=== PATIENT | female | born 1945 ===

== ENCOUNTER 2018-09-30 05:45 | Emergency (ER) | payer MEDICARE, SELFPAY ==
[2018-09-30] VITALS (9 sets, daily range): BP systolic 140–155; BP diastolic 55–63; PULSE 54–60; RESP 16–23; TEMP 36.5; O2SAT 91–96
--- NOTE | 2018-09-30 06:10 | DI.RAD_ITS ---
SYMPTOM/DIAGNOSIS: CHEST PAIN PORTABLE AP CHEST AT 0625 HOURS: The heart is enlarged. The lungs are grossly clear and well expanded. No other significant findings.
--- NOTE | 2018-09-30 06:12 | W.ED.GENAD ---
Discharge Plan Disposition Patient Disposition: [facility] Condition: Stable Discharge Details Chief Complaint: Chest Pain Clinical Impression: ST elevation (STEMI) myocardial infarction Primary Care Provider: Sadaf,Local ED Provider: Eren Kohler and New Rx's Prescriptions: No Action metoprolol succinate 100 mg Tablet Extended Release 24 Hr 100 mg PO DAILY RF: 0 allopurinol 100 mg Tablet 200 mg PO DAILY RF: 0 spironolactone 25 mg Tablet 25 mg PO DAILY RF: 0 furosemide [Lasix] 20 mg Tablet RF: 0 Medical Decision Making 73-year-old female with history of hypertension and chronic kidney disease visiting from [place]. Awoke with indigestion at 3 AM. Had similar symptoms 3 days prior to today but resolved with Zantac. EKG this morning shows anterior lateral STEMI. Patient moved to the resuscitation room where IV is established, laboratory studies obtained, medications administered. Case discussed with [facility] cardiology. Patient ordered for TNK, nitroglycerin, aspirin, Plavix, heparin drip. Case discussed with [facility] cardiology. Patient accepted in transfer to go to [facility]. Dark activated. Shortly after getting the TNK patient reports chest pain resolved. Repeat EKG done shows sinus bradycardia at 56. Continues with left axis but normal intervals. ST segments have almost completely normalized. She still has Q waves and poor R wave progression. She remains hemodynamically stable. Labs mostly pending. CBC is back with normal hemoglobin and platelets. Coags are normal. Portable chest x-ray per my review without acute changes. Lab Data Lab results reviewed: Yes I reviewed the patient's lab results. ECG Data Attestation: I personally reviewed and interpreted this ECG (s) as follows: Prior ECG tracings: not available for review Interpretation: #1 -Sinus bradycardia at 47. Left axis. Normal intervals. ST elevation in the anterior lateral leads with reciprocal change in the inferior leads. Q waves in V1 through V3 with poor R wave progression across the precordium. HPI General Mode of arrival: wheelchair. Date/Time Provider Initiated Documentation: 09/30/18 05:58. Limitations to Documentation: no limitations. Information obtained by: patient. HPI Narrative: Patient presents to ED with complaints of indigestion. Patient woke at 3 AM with discomfort in the center of her chest. It radiates into her jaw and her left arm. She has a little bit of shortness of breath especially with exertion. She reports having similar pain and discomfort 3 days ago while in [place]. It resolved after taking Zantac so they decided to come here for this grandson's graduation. She has not had any recurrent pain until this morning. She has not had pain previously. She does have a history of hypertension and stage IV kidney disease not on dialysis. She has never had a heart attack or stroke or cardiovascular complications. Related Data Home Medications Medication Instructions Recorded Confirmed allopurinol 200 mg PO DAILY 09/30/18 09/30/18 furosemide [Lasix] 09/30/18 metoprolol succinate 100 mg PO DAILY 09/30/18 09/30/18 spironolactone 25 mg PO DAILY 09/30/18 09/30/18 Allergies Allergy/AdvReac Type Severity Reaction Status Date / Time Penicillins Allergy Unverified 09/30/18 06:01 Sulfa (Sulfonamide Allergy Unverified 09/30/18 06:02 Antibiotics) General Stated Complaint: Chest Pain KIET: 2 Review of Systems Review of Systems Unobtainable due to (Not obtained due to acuity of situation) PFSH Medical History CKD (chronic kidney disease) (Chronic) HTN (hypertension) (Chronic) Social History Smoking/Tobacco Use Status: Never Alcohol Intake: never Drug use: Never Do you feel safe at home: Yes Do you feel safe in your relationship?: Yes Exam Narrative Exam Narrative: Vitals: Afebrile. Bradycardic with elevated blood pressure. Saturations in the low 90s but poor pleth. Const: Obese female in NAD. HEENT: NC/AT. Normal facial exam. Eyes: Normal conjunctiva and sclera. Neck: Supple. Trachea midline. Lungs: Normal respiratory effort. Lungs are clear. Cor: RRR but valentin without murmur/gallop. Good radial pulses. GI: Soft. NT/ND. No guarding or rebound. Neuro: A+O x 3. CN grossly in tact. Good strength and no focal deficit. Ext: No C/C. Bilateral LE edema, chronic. No deformity or tenderness. Skin: Warm and dry without rash. Course Vital Signs Temperature 97.7 F 09/30/18 05:56 Pulse 57 L 09/30/18 05:56 Respiratory Rate 16 09/30/18 05:56 Blood Pressure 155/61 H 09/30/18 05:56 Pulse Oximetry 91 L 09/30/18 05:56 Temperature 97.7 F 09/30/18 05:56 Temperature Source Skin 09/30/18 05:56 Pulse 57 L 09/30/18 05:56 Respiratory Rate 18 09/30/18 06:00 Respiratory Effort 09/30/18 06:00 Respiratory Depth Normal 09/30/18 06:00 Respiratory Pattern Normal 09/30/18 06:00 Blood Pressure 155/61 H 09/30/18 05:56 Blood Pressure Position Supine 09/30/18 05:56 Pulse Oximetry 91 L 09/30/18 05:56 Oxygen Delivery Method Room Air 09/30/18 05:56 Oxygen Flow Rate 0 09/30/18 05:56 Pain Level 4 09/30/18 05:56 Critical Care Time Critical Care Time: Yes Total Critical Care Time: 60 Attestation: STEMI
[2018-09-30] MEDS: Tenecteplase 50 MG KIT IVP (06:19)
[2018-09-30] MEDS: Aspirin 81 MG CHEW 324 MG CH (06:19)
--- NOTE | 2018-09-30 06:24 | ED.GENADUL_ITS ---
Discharge Plan Disposition Patient Disposition: [facility] Condition: Stable Discharge Details Chief Complaint: Chest Pain Clinical Impression: ST elevation (STEMI) myocardial infarction Primary Care Provider: Sadaf,Local ED Provider: Eren Kohler and New Rx's Prescriptions: No Action metoprolol succinate 100 mg Tablet Extended Release 24 Hr 100 mg PO DAILY RF: 0 allopurinol 100 mg Tablet 200 mg PO DAILY RF: 0 spironolactone 25 mg Tablet 25 mg PO DAILY RF: 0 furosemide [Lasix] 20 mg Tablet RF: 0 Medical Decision Making 73-year-old female with history of hypertension and chronic kidney disease visiting from [place]. Awoke with indigestion at 3 AM. Had similar symptoms 3 days prior to today but resolved with Zantac. EKG this morning shows anterior lateral STEMI. Patient moved to the resuscitation room where IV is established, laboratory studies obtained, medications administered. Case discussed with [facility] cardiology. Patient ordered for TNK, nitroglycerin, aspirin, Plavix, heparin drip. Case discussed with [facility] cardiology. Patient accepted in transfer to go to [facility]. Dark activated. Shortly after getting the TNK patient reports chest pain resolved. Repeat EKG done shows sinus bradycardia at 56. Continues with left axis but normal intervals. ST segments have almost completely normalized. She still has Q waves and poor R wave progression. She remains hemodynamically stable. Labs mostly pending. CBC is back with normal hemoglobin and platelets. Coags are normal. Portable chest x-ray per my review without acute changes. Lab Data Lab results reviewed: Yes I reviewed the patient's lab results. ECG Data Attestation: I personally reviewed and interpreted this ECG (s) as follows: Prior ECG tracings: not available for review Interpretation: #1 -Sinus bradycardia at 47. Left axis. Normal intervals. ST elevation in the anterior lateral leads with reciprocal change in the inferior leads. Q waves in V1 through V3 with poor R wave progression across the precordium. HPI General Mode of arrival: wheelchair . Date/Time Provider Initiated Documentation: 09/30/18 05:58 . Limitations to Documentation: no limitations . Information obtained by: patient . HPI Narrative: Patient presents to ED with complaints of indigestion. Patient woke at 3 AM with discomfort in the center of her chest. It radiates into her jaw and her left arm. She has a little bit of shortness of breath especially with exertion. She reports having similar pain and discomfort 3 days ago while in [place]. It resolved after taking Zantac so they decided to come here for this grandson's graduation. She has not had any recurrent pain until this morning. She has not had pain previously. She does have a history of hypertension and stage IV kidney disease not on dialysis. She has never had a heart attack or stroke or cardiovascular complications. Related Data Home Medications Medication Instructions Recorded Confirmed allopurinol 200 mg PO DAILY 09/30/18 09/30/18 furosemide [Lasix] 09/30/18 metoprolol succinate 100 mg PO DAILY 09/30/18 09/30/18 spironolactone 25 mg PO DAILY 09/30/18 09/30/18 Allergies Allergy/AdvReac Type Severity Reaction Status Date / Time Penicillins Allergy Unverified 09/30/18 06:01 Sulfa (Sulfonamide Allergy Unverified 09/30/18 06:02 Antibiotics) General Stated Complaint: Chest Pain KIET: 2 Review of Systems Review of Systems Unobtainable due to (Not obtained due to acuity of situation) PFSH Medical History CKD (chronic kidney disease) (Chronic) HTN (hypertension) (Chronic) Social History Smoking/Tobacco Use Status: Never Alcohol Intake: never Drug use: Never Do you feel safe at home: Yes Do you feel safe in your relationship?: Yes Exam Narrative Exam Narrative: Vitals: Afebrile. Bradycardic with elevated blood pressure. Saturations in the low 90s but poor pleth. Const: Obese female in NAD. HEENT: NC/AT. Normal facial exam. Eyes: Normal conjunctiva and sclera. Neck: Supple. Trachea midline. Lungs: Normal respiratory effort. Lungs are clear. Cor: RRR but valentin without murmur/gallop. Good radial pulses. GI: Soft. NT/ND. No guarding or rebound. Neuro: A+O x 3. CN grossly in tact. Good strength and no focal deficit. Ext: No C/C. Bilateral LE edema, chronic. No deformity or tenderness. Skin: Warm and dry without rash. Course Vital Signs Temperature 97.7 F 09/30/18 05:56 Pulse 57 L 09/30/18 05:56 Respiratory Rate 16 09/30/18 05:56 Blood Pressure 155/61 H 09/30/18 05:56 Pulse Oximetry 91 L 09/30/18 05:56 Temperature 97.7 F 09/30/18 05:56 Temperature Source Skin 09/30/18 05:56 Pulse 57 L 09/30/18 05:56 Respiratory Rate 18 09/30/18 06:00 Respiratory Effort 09/30/18 06:00 Respiratory Depth Normal 09/30/18 06:00 Respiratory Pattern Normal 09/30/18 06:00 Blood Pressure 155/61 H 09/30/18 05:56 Blood Pressure Position Supine 09/30/18 05:56 Pulse Oximetry 91 L 09/30/18 05:56 Oxygen Delivery Method Room Air 09/30/18 05:56 Oxygen Flow Rate 0 09/30/18 05:56 Pain Level 4 09/30/18 05:56 Critical Care Time Critical Care Time: Yes Total Critical Care Time: 60 Attestation: STEMI
[2018-09-30] MEDS: Clopidogrel 75 MG TAB PO (06:26)
[2018-09-30 06:28] LABS: Abs Immature Grans 0.05 k/cumm (0.0-0.09); Absolute Basophil Count 0.05 k/cumm (0.0-0.2); Absolute Eosinophil Count 0.34 k/cumm (0.0-0.7); Absolute Monocyte Count 1.11 k/cumm (0.11-0.7); Basophils % 0.5; Eosinophils % 3.1; HCT 45.5 % (36.0-46.0); HGB 14.7 g/dL (12.0-15.5); Immature Grans % 0.5; Lymphocytes % 12.9; Mean Corp. HGB Concentration 32.3 g/dL (32.0-36.0); Mean Corpuscular Hemoglobin 32.5 pg (27.0-33.0); Mean Corpuscular Volume 100.7 fL (80-95); Mean Platelet Volume 11.5 fL (8.0-11.0); Monocytes % 10.2; Neutrophils % 72.8; Platelet Count 275 x1000/uL (130-400); RBC 4.52 m/cumm (4.00-5.20); RBC Distribution Width 14.7 % (11.7-14.6); White Blood Cell Count 10.85 k/cumm (4.4-10.8)
[2018-09-30 06:35] LABS: PTT Activated 23.6 sec (21.0-31.4); Prothrombin Time 9.6 sec (9.3-11.0)
[2018-09-30 06:47] LABS: ALT 20 U/L (12-78); AST 27 U/L (15-37); Albumin 3.6 g/dL (3.4-5.0); Alkaline Phosphatase 99 U/L (46-116); Anion Gap 12.7 mmol/L (3-11); BUN 72 mg/dL (7-18); Bilirubin, Total 0.7 mg/dL (0.2-1.0); CO2 26.3 mmol/L (21.0-32.0); CREATININE 2.86 mg/dL (0.55-1.02); Calcium 9.2 mg/dL (8.5-10.1); Chloride 103 mmol/L (98-107); Estimated GFR 16.08 (mL/min/1.73m2); Glucose 143 mg/dL (70-100); Magnesium 2.6 mg/dL (1.8-2.4); Potassium 4.4 mmol/L (3.5-5.1); Sodium 142 mmol/L (136-145); Total Protein 6.9 g/dL (6.4-8.2)
[2018-09-30 06:49] LABS: Troponin I 0.18 ng/mL (0.00-0.06)
--- NOTE | 2018-09-30 06:49 | DI.VRAD_ITS ---
EXAM: XR Chest, 1 View EXAM DATE/TIME: 09/30/2018 6:13 AM CLINICAL HISTORY: 73 years old, female; Chest pain TECHNIQUE: Imaging protocol: XR of the chest, 1 view. COMPARISON: No relevant prior studies available. FINDINGS: Lungs: Unremarkable. No consolidation. Pleural space: Unremarkable. No evidence of pneumothorax. Heart/Mediastinum: Unremarkable. Heart size within normal limits for technique. Bones/joints: Unremarkable. IMPRESSION: No acute findings. Dictated and Authenticated by: Adilson Keller MD. Ordering:BRIT Jason MD
[2018-09-30] MEDS: Normal Saline 1,000 ML 30 ML IV (06:50)
== END 2018-09-30 07:04 | disposition short-term general hospital (02) ==
PROVIDERS: Emergency Provider Emergency Medicine
DX: I21.3 ST elevation (STEMI) myocardial infarction of unspecified site (principal); I12.9 Hypertensive chronic kidney disease with stage 1 through stage 4 chronic kidney disease, or unspecified chronic kidney disease; N18.9 Chronic kidney disease, unspecified
CPT/HCPCS: 36415; 80053; 96365; 96375; 99285; 99291; 71045; 83735; 84484; 85025; 85610; 85730; J3101